=== PATIENT | female | born 1975 | race Caucasian/White ===

== ENCOUNTER 2021-03-21 06:35 | Outpatient (CLI) | payer BC ==
[~2021-03-21] VITALS: Ht 157.5 cm; Wt 109.0 kg
[2021-03-21] MEDS ORDERED: ATOR20TA66 PO (11:29)
[2021-03-21] MEDS ORDERED: ENLP2.5T PO (11:29)
[2021-03-21] MEDS ORDERED: GABA-490 PO (11:29)
[2021-03-21] MEDS ORDERED: FAMO10TA43 PO (11:29)
[2021-03-21] MEDS ORDERED: CROM40SP NS (11:29)
[2021-03-21] MEDS ORDERED: SPIR25TA5 PO (11:29)
[2021-03-21] MEDS ORDERED: TRAZ-227 PO (11:29)
[2021-03-21] MEDS ORDERED: EMPA10TA PO (11:29)
[2021-03-21] MEDS ORDERED: OMEP40CA6 PO (11:29)
[2021-03-21] MEDS ORDERED: DIPH50CA PO (11:29)
[2021-03-21] MEDS ORDERED: FEXO180T84 PO (11:29)
[2021-03-21] MEDS ORDERED: VNL37.5T PO (11:29)
== END 2021-03-21 12:50 | disposition home or self-care (01) ==
LOC: PREOP 06:35
PROVIDERS: ATTEND Internal Medicine
DX: Z01.818 Encounter for other preprocedural examination (principal)

== ENCOUNTER 2021-03-22 07:59 | Day surgery (SDC) | payer BC ==
[~2021-03-22] VITALS: Ht 157.5 cm; Wt 109.0 kg
--- NOTE | 2021-03-22 07:08 | HISTORY AND PHYSICAL ---
DATE OF SERVICE: COLONOSCOPY HISTORY AND PHYSICAL HISTORY: The patient is a 45-year-old white female referred by Dr. Shannan Alonzo from the [facility] for diagnostic colonoscopy. The patient reports that 2 weeks ago noting the onset of bright red blood per rectum. This happened on four occasions now. With this, she has had some sharp bilateral lower quadrant abdominal pain and reports her stool caliber change and is more ribbon like. She denies overt diarrhea. She has had no night sweats, chills or fever. Reports her weight is probably up 5 pounds in the last month as she did take a round of prednisone for sinus symptoms about 5 weeks ago. Bleeding was not associated with the steroid, she takes rare ibuprofen and no other nonsteroidal medication or aspirin. She has had no previous problems with rectal bleeding. There is family history for Crohn's disease in her mother. She is not aware of any family history for colon cancer and she has had no previous reason for colonoscopy. PAST MEDICAL HISTORY: Significant for type 2 diabetes, hypertension and hyperlipidemia with no known history of cardiovascular disease. PAST SURGICAL HISTORY: She has had 2 sections, underwent hemorrhoid surgery over 10 years ago, has had a cholecystectomy, a total abdominal hysterectomy 3 years ago and lumpectomy of the breast, which was benign and also some sinus surgery. FAMILY HISTORY: Mother living in her early 70s with history of Crohn's disease. Father is living with diabetes in his early 70s as well. 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 She is fully vaccinated for COVID. REVIEW OF SYSTEMS: CONSTITUTIONAL: She has had about a 5-pound weight gain with no night sweats, chills or fever. GASTROINTESTINAL: As noted in the HPI. CARDIOVASCULAR: Denies chest pain, orthopnea, PND, pedal edema or syncope. PULMONARY: Denies cough, wheezing or shortness of breath. PHYSICAL EXAMINATION: GENERAL: Reveals a pleasant overweight white female in no acute distress. VITAL SIGNS: Weight 242 pounds, blood pressure 126/90. HEENT: Unremarkable. Sclerae nonicteric. CHEST: Clear. CARDIOVASCULAR: Reveals regular rate and rhythm without murmur, S3 or S4. ABDOMEN: Soft, supple. Mild bilateral lower quadrant discomfort to palpation without rebound or guarding. No mass or organomegaly noted. EXTREMITIES: Reveal no cyanosis, clubbing or edema. ASSESSMENT AND PLAN: The patient is being set up for diagnostic colonoscopy due to change in bowel habit, rectal bleeding and bilateral lower quadrant abdominal pain. Prep instructions with the Suprep kit were given and questions were answered. I thank you for the referral of this pleasant lady. Job ID: [id number] DocumentID: [id number] Dictated Date: 03/20/2021 16:57:34 Edge Stainer Machine Date: 03/20/2021 17:17:27 Dictated By: JULES FRENCH MD
[~2021-03-22 07:59] MED LIST: ATOR20TA66 PO; CROM40SP NS; DIPH50CA PO; EMPA10TA PO; ENLP2.5T PO; FAMO10TA43 PO; FEXO180T84 PO; GABA-490 PO; OMEP40CA6 PO; SPIR25TA5 PO; TRAZ-227 PO; VNL37.5T PO
[2021-03-22] MEDS ORDERED: LACTATED RINGERS 1,000 ML IV ONE (08:09)
[2021-03-22 08:10] VITALS: BP 157/91
[2021-03-22] MEDS ORDERED: LACTATED RINGERS 1,000 ML IV STA (08:59)
[2021-03-22] MEDS ORDERED: LIDOCAINE JELLY 2% 6 ML SYRINGE MM PRN (09:00)
[2021-03-22] MEDS ORDERED: LIDOCAINE JELLY 2% 6 ML SYRINGE ONE (09:01)
[2021-03-22] MEDS ORDERED: PROPOFOL INJECTION 50 ML IV ONE (09:40)
[2021-03-22 10:05] VITALS: BP 129/66
--- NOTE | 2021-03-22 10:06 | Anesthesia-General Post-Op ---
MAC Patient Condition Mental Status/LOC: Same as Preop Cardiovascular: Satisfactory Nausea/Vomiting: Absent Respiratory: Satisfactory Pain: Controlled Complications: Absent Post Op Complications Complications None Follow Up Care/Instructions Patient Instructions None needed. Anesthesiology Discharge Order Discharge Order Patient is doing well, no complaints, stable vital signs, no apparent adverse anesthesia problems. No complications reported per nursing. YUNG JAQUEZ CRNA Mar 22, 2021 10:06
[2021-03-22 10:10] VITALS: BP 127/69
[2021-03-22 10:15] VITALS: BP 114/61
[2021-03-22 10:20] VITALS: BP 114/61
[2021-03-22 11:15] VITALS: BP 114/61
--- NOTE | 2021-03-22 14:30 | OPERATIVE REPORT ---
DATE OF SERVICE: COLONOSCOPY SUMMARY INDICATION FOR THE PROCEDURE: Rectal bleeding, bilateral lower quadrant abdominal pain. DESCRIPTION OF PROCEDURE: The patient was placed in the left lateral decubitus position. Prior to undergoing colonoscopy, digital rectal evaluation was performed. Anal sphincter tone was normal. Perianal reflexes intact. There was some prominent perianal skin folds, no evidence for internal or external hemorrhoids. The colonoscope was then inserted into the rectum and under direct visualization advanced to cecum. The cecum was identified by identification of ileocecal valve and cecal strap. Photographic documentation was obtained. Careful inspection was made as the colonoscope withdrawn. FINDINGS: The distal rectum appeared inflamed without evidence for pseudopolyps or ulceration. Photograph was obtained. Two biopsies were obtained and submitted for evaluation for proctitis. The mid and proximal rectum were unremarkable as was the remainder of the colonoscopy with no evidence for neoplasia or diverticular disease. ASSESSMENT: Proctitis involving the distal rectum. Biopsies results pending. We will await histopathology report before recommending therapy. Job ID: [id number] DocumentID: [id number] Dictated Date: 03/22/2021 10:05:57 Business Support Manager Date: 03/22/2021 14:29:49 Dictated By: JULES FRENCH MD MTDD
== END 2021-03-22 11:20 | disposition home or self-care (01) ==
LOC: ENDO 07:59
PROVIDERS: ATTEND Internal Medicine
DX: K52.9 Noninfective gastroenteritis and colitis, unspecified (principal); K62.5 Hemorrhage of anus and rectum; R10.31 Right lower quadrant pain; R10.32 Left lower quadrant pain; E11.9 Type 2 diabetes mellitus without complications; E66.9 Obesity, unspecified; J45.909 Unspecified asthma, uncomplicated; I10 Essential (primary) hypertension; E78.5 Hyperlipidemia, unspecified; F32.A Depression, unspecified; F41.9 Anxiety disorder, unspecified; Z79.899 Other long term (current) drug therapy; Z90.49 Acquired absence of other specified parts of digestive tract; Z90.710 Acquired absence of both cervix and uterus; Z83.3 Family history of diabetes mellitus
CPT/HCPCS: 88305